=== PATIENT | male | born 1965 | race American Indian/Alaskan Native ===

== ENCOUNTER 2020-02-09 09:53 | Emergency (ER) | payer SELFPAY ==
--- NOTE | 2020-02-09 10:22 | RAD ---
RADIOGRAPH LEFT RIBS 3 VIEWS: 02/09/2020 HISTORY: 54-year-old male with acute left rib pain FINDINGS: No evidence of fracture or destructive osseous lesion. IMPRESSION: Negative
== END 2020-02-09 11:55 | disposition home or self-care (01) ==
LOC: ERS 09:53
DX: S20.212A Contusion of left front wall of thorax, initial encounter (principal); I10 Essential (primary) hypertension; F17.210 Nicotine dependence, cigarettes, uncomplicated; X58.XXXA Exposure to other specified factors, initial encounter
CPT/HCPCS: 93005

== ENCOUNTER 2024-12-28 17:16 | Inpatient (IN) | payer OTHER, SELFPAY ==
[~2024-12-28 17:16] MED LIST: Iopamidol-370 76% 500 ML MDV (1 ML CHARGE) ONE
[2024-12-28] MEDS ORDERED: Bacitracin 1 PK ONE (18:01)
[2024-12-28] MEDS ORDERED: Boostrix 0.5 ML (Tdap) VIAL (>/=7 yrs of age) ONE (18:01)
[2024-12-28] MEDS ORDERED: Lidocaine 1% (PF) 30 ML VIAL ONE (18:04)
[2024-12-28 18:14] LABS: #Basophils 0.07 10x3/uL (0.0-0.2); #Eosinophils 0.09 10x3/uL (0.0-0.7); #Monocytes 0.45 10x3/uL (0.11-0.59); #Neutrophils 6.27 10x3/uL (1.40-6.50); %Basophils 0.8 % (0.0-1.0); %Eosinophils 1.0 % (0.0-10.0); %Lymphocytes 21.6 % (21.0-51.0); %Monocytes 5.1 % (0.0-10.0); %Neutrophils 70.8 % (42.0-75.0); Hematocrit 44.0 % (42.0-52.0); Hemoglobin 14.5 g/dL (14.0-18.0); Mean Corpuscular Hemoglobin 31.0 pg (27.0-31.0); Mean Corpuscular Volume 94.2 fL (78.0-98.0); Platelet Count 252 10x3/uL (130-400); Red Blood Cell (RBC) Count 4.67 mill/uL (4.70-6.10); White Blood Cell (WBC) Count 8.85 10x3/uL (4.8-10.8)
[2024-12-28 18:30] LABS: ALT (SGPT) 44 U/L (Less than 45); AST (SGOT) 33 U/L (11-34); Albumin 4.0 g/dL (3.1-4.5); Alkaline Phosphatase 85 U/L (40-110); Anion Gap 21 mmol/L (10-20); BUN (Urea Nitrogen) 17 mg/dL (8.4-25.7); Bilirubin, Total 0.3 mg/dL (0.3-1.2); Calc. Creatinine Clearance 0 mL/min (70-130); Calcium 8.7 mg/dL (7.8-10.44); Carbon Dioxide 19 mmol/L (22-29); Chloride 102 mmol/L (98-107); Globulin 3.0 g/dL (2.4-3.5); Glucose 252 mg/dL (70-105); Lipase 23 U/L (8-78); Magnesium 2.0 mg/dL (1.6-2.6); Potassium 3.7 mmol/L (3.5-5.1); Sodium 138 mmol/L (136-145)
[2024-12-28 18:31] LABS: Acetaminophen Less than 10 mcg/mL (Less than 10); Salicylate Less than 8.0 mg/dL (Less than 8.0)
[2024-12-28] MEDS ORDERED: Aspirin Chewable 81 MG TAB ONE (19:17)
[2024-12-28] MEDS ORDERED: Acetaminophen 325 MG TAB PO PRN (20:33)
[2024-12-28 21:15] VITALS: BMI 25.0
[2024-12-28] MEDS: Fioricet 325/50/40 mg Tablet PO PRN (21:28)
[2024-12-29 04:36] LABS: #Basophils 0.05 10x3/uL (0.0-0.2); #Eosinophils 0.09 10x3/uL (0.0-0.7); #Monocytes 0.79 10x3/uL (0.11-0.59); #Neutrophils 7.97 10x3/uL (1.40-6.50); %Basophils 0.4 % (0.0-1.0); %Eosinophils 0.8 % (0.0-10.0); %Lymphocytes 19.6 % (21.0-51.0); %Monocytes 7.1 % (0.0-10.0); %Neutrophils 71.7 % (42.0-75.0); Hematocrit 41.6 % (42.0-52.0); Hemoglobin 13.8 g/dL (14.0-18.0); Mean Corpuscular Hemoglobin 31.2 pg (27.0-31.0); Mean Corpuscular Volume 93.9 fL (78.0-98.0); Platelet Count 240 10x3/uL (130-400); Red Blood Cell (RBC) Count 4.43 mill/uL (4.70-6.10); White Blood Cell (WBC) Count 11.13 10x3/uL (4.8-10.8)
[2024-12-29 05:07] LABS: Anion Gap 14 mmol/L (10-20); BUN (Urea Nitrogen) 15 mg/dL (8.4-25.7); Calc. Creatinine Clearance 122 mL/min (70-130); Calcium 8.3 mg/dL (7.8-10.44); Carbon Dioxide 24 mmol/L (22-29); Cardiac Risk 8.6 (Less than 4.5); Chloride 103 mmol/L (98-107); Cholesterol 242 mg/dl (< 200 Desired); Glucose 183 mg/dL (70-105); HDL Cholesterol 28 mg/dL (>60 Neg Risk); Potassium 3.9 mmol/L (3.5-5.1); Sodium 137 mmol/L (136-145); Triglycerides 1210 mg/dL (Less than 150)
[2024-12-29] MEDS: Thiamine 100 MG TAB PO SCH (09:22)
[2024-12-29] MEDS: Enoxaparin 40 MG (0.4 mL) SYRINGE SC SCH (09:22)
[2024-12-29] MEDS: Folic Acid 1 MG TAB PO SCH (09:23)
[2024-12-29] MEDS ORDERED: Electrolyte Replacement Protocol 1 EACH FS SCH (10:00)
[2024-12-29] MEDS: Magnesium 2 GM/50 ML(in water) 2 GM in Premix 1 BAG IVPB SCH (13:17)
[2024-12-29] MEDS ORDERED: Glucagon 1 MG/ML KIT IM PRN (13:40)
[2024-12-29] MEDS ORDERED: Dextrose 50% Abboject 50 ML SYRINGE SLOW IVP PRN (13:40)
[2024-12-30 05:07] LABS: #Basophils 0.07 10x3/uL (0.0-0.2); #Eosinophils 0.11 10x3/uL (0.0-0.7); #Monocytes 0.62 10x3/uL (0.11-0.59); #Neutrophils 5.50 10x3/uL (1.40-6.50); %Basophils 0.8 % (0.0-1.0); %Eosinophils 1.3 % (0.0-10.0); %Lymphocytes 24.1 % (21.0-51.0); %Monocytes 7.4 % (0.0-10.0); %Neutrophils 65.9 % (42.0-75.0); Hematocrit 39.8 % (42.0-52.0); Hemoglobin 12.9 g/dL (14.0-18.0); Mean Corpuscular Hemoglobin 30.8 pg (27.0-31.0); Mean Corpuscular Volume 95.0 fL (78.0-98.0); Platelet Count 217 10x3/uL (130-400); Red Blood Cell (RBC) Count 4.19 mill/uL (4.70-6.10); White Blood Cell (WBC) Count 8.35 10x3/uL (4.8-10.8)
[2024-12-30 05:32] LABS: ALT (SGPT) 27 U/L (Less than 45); AST (SGOT) 17 U/L (11-34); Albumin 3.2 g/dL (3.1-4.5); Alkaline Phosphatase 72 U/L (40-110); Anion Gap 13 mmol/L (10-20); BUN (Urea Nitrogen) 11 mg/dL (8.4-25.7); Bilirubin, Total 0.5 mg/dL (0.3-1.2); Calc. Creatinine Clearance 131 mL/min (70-130); Calcium 8.0 mg/dL (7.8-10.44); Carbon Dioxide 25 mmol/L (22-29); Cardiac Risk 7.4 (Less than 4.5); Chloride 106 mmol/L (98-107); Cholesterol 214 mg/dl (< 200 Desired); Globulin 2.6 g/dL (2.4-3.5); Glucose 168 mg/dL (70-105); HDL Cholesterol 29 mg/dL (>60 Neg Risk); Potassium 3.6 mmol/L (3.5-5.1); Sodium 140 mmol/L (136-145); Triglycerides 901 mg/dL (Less than 150)
[2024-12-30] MEDS: Multivit, Therapeutic 1 TAB PO SCH (08:23)
[2024-12-30 11:40] VITALS: BP 162/92; TEMP 98.7
== END 2024-12-30 11:35 | disposition home or self-care (01) | DRG 897 ==
LOC: ERS 17:16 → 2SE 19:49 → OBSVTOIN 12-29 13:49
PROVIDERS: ADMIT Internal Medicine; ATTEND Internal Medicine
PROC: 0HQ0XZZ Repair Scalp Skin, External Approach (ICD-10-PCS; principal; 2024-12-28)
PROC: 3E0234Z Introduction of Serum, Toxoid and Vaccine into Muscle, Percutaneous Approach (ICD-10-PCS; 2024-12-28)
DX: F10.229 Alcohol dependence with intoxication, unspecified (principal); R29.898 Other symptoms and signs involving the musculoskeletal system; F17.210 Nicotine dependence, cigarettes, uncomplicated; E78.1 Pure hyperglyceridemia; E11.9 Type 2 diabetes mellitus without complications; Y90.7 Blood alcohol level of 200-239 mg/100 ml; I10 Essential (primary) hypertension; S01.01XA Laceration without foreign body of scalp, initial encounter; Z71.6 Tobacco abuse counseling; Z79.899 Other long term (current) drug therapy; Z86.73 Personal history of transient ischemic attack (TIA), and cerebral infarction without residual deficits; Z98.890 Other specified postprocedural states; Z91.018 Allergy to other foods; Z23 Encounter for immunization; W19.XXXA Unspecified fall, initial encounter; Y93.01 Activity, walking, marching and hiking
CPT/HCPCS: 36415; 36416; 70450; 70496; 70498; 70553; 71045; 72125; 76376; 80048; 80053; 80061; 80307; 83036; 83690; 83735; 84443; 84484; 85025; 90715; 93005; 93306; 96372; 96375; G0378; J1650; J1815; J3475; J7030; Q9967